=== PATIENT | male | born 1970 | race Caucasian/White ===

== ENCOUNTER → 2023-12-16 17:04 | Outpatient (REF) | payer OTHER, SELFPAY | LOC: RAD 17:04 | PROVIDERS: ATTENDING PHYSICIAN Registered Nurse | DX: M70.41 Prepatellar bursitis, right knee (principal) | CPT/HCPCS: 73564 ==

== ENCOUNTER 2025-03-06 06:28 | Day surgery (SDC) | payer OTHER, SELFPAY | END 2025-03-06 13:27 | disposition home or self-care (01) | LOC: GI 06:28 | PROVIDERS: ATTENDING PHYSICIAN Internal Medicine Gastroenterology | DX: Z12.11 Encounter for screening for malignant neoplasm of colon (principal); K57.30 Diverticulosis of large intestine without perforation or abscess without bleeding; K64.8 Other hemorrhoids; D12.4 Benign neoplasm of descending colon; K62.1 Rectal polyp; Z86.0100 Personal history of colon polyps, unspecified | CPT/HCPCS: 45385; 45380; 88305 ==